=== PATIENT | male | born 1985 | race Two or more races ===

== ENCOUNTER 2022-08-22 20:55 | Inpatient (IN) | payer SELFPAY ==
[~2022-08-22] VITALS: Ht 167.6 cm; Wt 81.6 kg
--- NOTE | 2022-08-22 21:12 | NUR ---
pt bib ra for syncope episode. Dr. Webber at [facility] for MSE.
--- NOTE | 2022-08-22 21:13 | NUR ---
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 no previous history of syncope episode.
[2022-08-22 21:20] LABS: MEAN CORPUSCULAR HEMOGLOBIN 29.5 uug (23.8-33.4); MEAN CORPUSCULAR VOLUME 86.1 fL (73.0-96.2); PLATELET COUNT (AUTO) 227 K/uL (152-348)
--- NOTE | 2022-08-22 21:40 | NUR ---
pt taken to cat scan.
[2022-08-22 21:43] LABS: CARBON DIOXIDE 23 mmol/L (21-32); CHLORIDE 102 mmol/L (98-107); GLUCOSE 89 mg/dL (74-106); POTASSIUM 3.1 mmol/L (3.5-5.1); UREA NITROGEN, BLOOD 15 mg/dL (7-18)
--- NOTE | 2022-08-22 21:47 | NUR ---
pt returned from cat scan.
[2022-08-22 21:51] LABS: ALANINE AMINOTRANSFERASE 89 U/L (16-63); ALKALINE PHOSPHATASE 98 U/L (50-136); ASPARTATE AMINOTRANSFERASE 29 U/L (15-37); BILIRUBIN,DIRECT 0.1 mg/dL (0.0-0.2); BILIRUBIN,TOTAL 0.5 mg/dL (0.2-1.0); TOTAL PROTEIN, SERUM 8.4 g/dL (6.4-8.2)
[2022-08-22] MEDS ORDERED: POTASSIUM BICARBONATE/CIT AC 25 MEQ TABLET.EFF PO ONE (22:30)
[2022-08-22] MEDS ORDERED: POTASSIUM BICARBONATE/CIT AC 25 MEQ TABLET.EFF ONE (22:34)
[2022-08-22] MEDS ORDERED: SWABABLE VALVE TRANSFER SET EA MC ONE (22:35)
[2022-08-22] MEDS ORDERED: IV NORMAL SALINE 250 ML IV ONE (22:35)
--- NOTE | 2022-08-22 22:43 | NUR ---
pt taken for cat scan.
--- NOTE | 2022-08-22 22:58 | NUR ---
pt returned from cat scan.
--- NOTE | 2022-08-22 23:15 | NUR ---
call to [facility] medical panel for admission.
--- NOTE | 2022-08-22 23:34 | NUR ---
Gee Su called back for admission.
[2022-08-22] MEDS ORDERED: ACETAMINOPHEN 325 MG TABLET PO PRN (23:45)
[2022-08-22] MEDS ORDERED: ONDANSETRON 4 MG/2 ML VIAL IV PRN (23:45)
[2022-08-22] MEDS ORDERED: REMEDY ESSENTIAL ZINC PASTE 113 GM TP PRN (23:45)
[2022-08-22] MEDS ORDERED: MAGNESIUM HYDROXIDE 30 ML LIQUID UDC PO PRN (23:45)
--- NOTE | 2022-08-23 01:42 | NUR ---
per francesca RN pt will go to room 306 nurse will be Hemal.
--- NOTE | 2022-08-23 02:30 | NUR ---
report given to dorothy pt to go to room 306.
--- NOTE | 2022-08-23 02:53 | NUR ---
pt transported to room 306 via w/c with all belongings. AMBROSE de la cruz at bedside to receive the pt.
[2022-08-23] MEDS: PANTOPRAZOLE SODIUM 40 MG TABLET.DR PO SCH (06:52)
[2022-08-23 07:43] LABS: HEMATOCRIT 38.2 % (36.7-47.1); MEAN CORPUSCULAR HEMOGLOBIN 29.5 uug (23.8-33.4); MEAN CORPUSCULAR VOLUME 84.3 fL (73.0-96.2); PLATELET COUNT (AUTO) 222 K/uL (152-348)
[2022-08-23 08:03] LABS: CREATININE 0.8 mg/dL (0.6-1.3); MAGNESIUM 2.2 mg/dL (1.8-2.4); PHOSPHOROUS 4.4 mg/dL (2.5-4.9); POTASSIUM 3.3 mmol/L (3.5-5.1)
[2022-08-23 10:43] LABS: THYROID STIMULATING HORMONE 0.922 mIU/mL (0.358-3.740)
[2022-08-23] MEDS ORDERED: POTASSIUM CHLORIDE 20 MEQ TAB.PRT.SR PO ONE (11:00)
[2022-08-23 11:32] VITALS: BP 110/63
[2022-08-23 15:09] VITALS: BP 93/64
--- NOTE | 2022-08-23 19:30 | NUR ---
Received patient lying in bed. AAOx4. In no acute distress. Denies any pain or SOB. NSR on tele with HR of 86/min. IV site on left AC intact and patent. Needs assessed and attended to. Safety measure initiated and call light within reached.
[2022-08-23 20:00] VITALS: BP 108/63
[2022-08-24 00:11] VITALS: BP 117/70
[2022-08-24 04:00] VITALS: BP 91/56
[2022-08-24] MEDS: PANTOPRAZOLE SODIUM 40 MG TABLET.DR PO SCH (06:02)
[2022-08-24 07:59] LABS: CREATININE 0.9 mg/dL (0.6-1.3); POTASSIUM 4.1 mmol/L (3.5-5.1)
[2022-08-24 11:17] VITALS: BP 127/64
[2022-08-24 15:05] VITALS: BP 107/68
--- NOTE | 2022-08-24 17:00 | NUR ---
INSTRUCTED THAT WILL BE DISCHARGED TONIGHT. NEEDS TO FOLLOW UP WITH A PMD AND A OPERATOR IN 1 WEEK. VERBALIZED UNDERSTANDING. PREPARING FOR DISCHARGE. SALINE LOCK DC'D. ANGIOCATH REMOVED INTACT.
[2022-08-24] MEDS ORDERED: SIMV10TA2 PO (17:16)
== END 2022-08-24 18:30 | disposition home or self-care (01) | DRG 87 ==
LOC: ER 20:59 → TRANSITION 23:30 → TELE3 08-23 02:37
PROVIDERS: ADMIT Internal Medicine; ATTEND Internal Medicine
DX: S06.330A Contusion and laceration of cerebrum, unspecified, without loss of consciousness, initial encounter (principal); E87.6 Hypokalemia; E66.9 Obesity, unspecified; E78.5 Hyperlipidemia, unspecified; I51.7 Cardiomegaly; Z20.822 Contact with and (suspected) exposure to COVID-19; R74.01 Elevation of levels of liver transaminase levels; W19.XXXA Unspecified fall, initial encounter; Y93.9 Activity, unspecified; Y92.009 Unspecified place in unspecified non-institutional (private) residence as the place of occurrence of the external cause; R40.2142 Coma scale, eyes open, spontaneous, at arrival to emergency department; R40.2362 Coma scale, best motor response, obeys commands, at arrival to emergency department; R40.2252 Coma scale, best verbal response, oriented, at arrival to emergency department; Z68.29 Body mass index [BMI] 29.0-29.9, adult
CPT/HCPCS: 36415; 70450; 71045; 83605; 83735; 84100; 84443; 84484; 85025; 93005; 93307; 93880; A4663; G0378